=== PATIENT | male | born 1985 | race American Indian/Alaskan Native ===

== ENCOUNTER 2017-02-26 01:46 | Emergency (ER) | payer OTHER ==
[2017-02-26 03:08] LABS: Anion Gap 15 mmol/L; BUN/Creatinine Ratio 11; Basophils % (Auto) 1.4 % (0.0-1.8); Blood Urea Nitrogen 11 mg/dL (9-20); Carbon Dioxide 27 mmol/L (22-30); Chloride 103.8 mmol/L (98-107); Eosinophils % (Auto) 1.3 % (0.0-4.3); Glucose 95 mg/dL (75-100); Hematocrit 42.8 % (35.5-45.6); Hemoglobin 14.4 gm/dl (11.8-15.2); Mean Corpuscular HGB Conc 34 % (32-34); Mean Corpuscular Hemoglobin 27 pg (28-32); Mean Corpuscular Volume 81 fl (84-94); Potassium 4.2 mmol/L (3.6-5.0); Red Blood Count 5.31 M/mm3 (3.65-5.03); Red Cell Distribution Width 14.1 % (13.2-15.2); Sodium 142 mmol/L (137-145)
[2017-02-26 03:13] LABS: Platelet Count 226 K/mm3 (140-440)
--- NOTE | 2017-02-26 07:31 | XRay Report ---
ROUTINE CHEST, TWO VIEWS: HISTORY: Short of breath. The trachea, heart, mediastinal contour, lung teixeira and bony thorax are unremarkable. IMPRESSION: Unremarkable chest x-ray.
[2017-02-26 08:45] VITALS: BP 127/79
== END 2017-02-26 10:30 | disposition left against medical advice (07) ==
LOC: ED 01:46
DX: R42 Dizziness and giddiness (principal); Z53.21 Procedure and treatment not carried out due to patient leaving prior to being seen by health care provider
CPT/HCPCS: 36415; 71020; 80048; 84484; 85025; 93005; 93010

== ENCOUNTER 2017-03-02 11:41 | Emergency (ER) | payer OTHER ==
[2017-03-02 11:56] VITALS: BP 147/78
--- NOTE | 2017-03-02 12:19 | Emergency Department Report ---
ED Dizziness HPI - General Chief Complaint: Dizziness Stated Complaint: DIZZINESS/VOMITING Time Seen by Provider: 03/02/17 12:10 Source: patient Mode of arrival: Ambulatory Limitations: No Limitations - History of Present Illness MD Complaint: dizziness -: Gradual, week(s) Timing: gradual onset Description: "room spinning" History of Same: Yes History of Trauma: No Severity: mild Improves With: remaining still Worsens With: movement Associated Symptoms: other (N/V LAST WEEK). denies: ataxia, chest pain, confusion, cough, diaphoresis, fever/chills, loss of appetite, malaise, rash, seizure, shortness of breath, syncope, weakness - Related Data Previous Rx's Medication Instructions Recorded Last Taken Type Ibuprofen [Motrin 600 MG tab] 600 mg PO Q8H PRN #30 tablet 04/26/15 Unknown Rx traMADol [Ultram 50 MG tab] 50 mg PO Q6HR PRN #15 tablet 04/26/15 Unknown Rx Amoxicillin [Amoxicillin TAB] 875 mg PO BID #14 tablet 03/10/16 Unknown Rx Fluticasone [Flonase] 1 spray NS QDAY #1 bottle 03/10/16 Unknown Rx methylPREDNISolone [Medrol] 4 mg PO QAM #1 dosepack 03/10/16 Unknown Rx Allergies Allergy/AdvReac Type Severity Reaction Status Date / Time No Known Allergies Allergy Verified 04/26/15 09:43 ED Review of Systems ROS: Stated complaint: DIZZINESS/VOMITING Other details as noted in HPI Comment: All other systems reviewed and negative Constitutional: no symptoms reported, see HPI. denies: chills, diaphoresis, fever, malaise Eyes: as per HPI. denies: eye pain ENT: as per HPI. denies: ear pain, throat pain, dental pain, hearing loss, epistaxis Respiratory: no symptoms reported. denies: see HPI, cough, orthopnea Cardiovascular: as per HPI. denies: chest pain, palpitations, dyspnea on exertion, orthopnea Endocrine: no symptoms reported, see HPI. denies: excessive sweating, flushing , intolerance to cold, intolerance to heat Gastrointestinal: as per HPI. denies: abdominal pain, nausea, vomiting Genitourinary: as per HPI. denies: urgency, dysuria Musculoskeletal: as per HPI. denies: back pain Skin: as per HPI. denies: rash, lesions Neurological: as per HPI. denies: headache, weakness Psychiatric: as per HPI, anxiety. denies: depression Hematological/Lymphatic: as per HPI. denies: easy bleeding ED Past Medical Hx - Past Medical History Additional medical history: seasonal allergies. DENIES HEART HX. NO DRUGS/ETOH /CIG. WORKS FOR [employer] - Surgical History Additional Surgical History: L knee - Social History Smoking Status: Never Smoker Substance Use Type: Alcohol - Medications Home Medications: Home Medications Medication Instructions Recorded Confirmed Last Taken Type Ibuprofen [Motrin 600 MG tab] 600 mg PO Q8H PRN #30 tablet 04/26/15 Unknown Rx traMADol [Ultram 50 MG tab] 50 mg PO Q6HR PRN #15 tablet 04/26/15 Unknown Rx Amoxicillin [Amoxicillin TAB] 875 mg PO BID #14 tablet 03/10/16 Unknown Rx Fluticasone [Flonase] 1 spray NS QDAY #1 bottle 03/10/16 Unknown Rx methylPREDNISolone [Medrol] 4 mg PO QAM #1 dosepack 03/10/16 Unknown Rx ED Physical Exam - General Limitations: No Limitations General appearance: alert, in no apparent distress, anxious (WORRY, WORK NOT REQUESTED) - Eye Eye exam: Present: PERRL, EOMI, nystagmus (W RAPID L HEAD MOVEMENT). Absent: scleral icterus, conjunctival injection, periorbital swelling, periorbital tenderness - ENT ENT exam: Present: normal exam, normal orophraynx, mucous membranes moist, other (POST NASAL DRIP; R EAR FLUID) - Neck Neck exam: Present: normal inspection. Absent: tenderness, meningismus - Respiratory Respiratory exam: Present: normal lung sounds bilaterally. Absent: respiratory distress, wheezes, rales, rhonchi, stridor - Cardiovascular Cardiovascular Exam: Present: regular rate, normal rhythm. Absent: bradycardia , tachycardia - GI/Abdominal GI/Abdominal exam: Present: soft, normal bowel sounds. Absent: distended, tenderness, guarding, rebound, rigid, diminished bowel sounds - Rectal Rectal exam: Present: deferred - Back Exam Back exam: Present: normal inspection, full ROM. Absent: tenderness, CVA tenderness (R), CVA tenderness (L), muscle spasm, paraspinal tenderness, vertebral tenderness - Neurological Exam Neurological exam: Present: alert, oriented X3, CN II-XII intact, normal gait, reflexes normal - Expanded Neurological Exam Expanded Neurological exam: Present: protecting the airway. Absent: innattentive, memory loss-remote event, memory loss-recent event, ataxia, receptive aphasia, expressive aphasia, total aphasia, tremor Patient oriented to: Present: person, place, time Speech: Present: fluid speech. Absent: receptive aphasia, expressive aphasia, total aphasia, anomia Cranial nerves: EOM's Intact: Normal, Gag Reflex: Normal, Tongue Deviation: Normal, Facial Sensation: Normal Cerebellar function: Finger to Nose: Normal, Heel to Wise: Normal, Romberg: Normal Upper motor neuron: Pronator Drift: Normal Motor strength exam: RUE: 5, LUE: 5, RLE: 5, LLE: 5 Best Eye Response ([place]): (4) open spontaneously Best Motor Response ([place]): (6) obeys commands Best Verbal Response ([place]): (5) oriented [place] Total: 15 - Psychiatric Psychiatric exam: Present: normal affect, normal mood, anxious - Skin Skin exam: Present: warm, dry, intact, normal color ED Course Vital Signs 03/02/17 11:48 Temperature 98.8 F Pulse Rate 81 Blood Pressure 147/78 O2 Sat by Pulse 98 Oximetry - Reevaluation(s) Reevaluation #1: 03/02/17 12:28 TO ER ON WAITED 9H THEN LEFT TROP NEG X 3. LABS WNL PT MISSED WORK EARLY IN WEEK W DIZZINESS HE CAME FOR WORK NOTE AT THAT TIME HE HAD VERTIGO AND N/V SINCE RESOLVED HX ALLERGY AND SINUS INFECTIONS NYSTAGMUS W RAPID L MOVEMENT OF HEAD PT REPORTS WHEN HE IS DRIVING AND TURNS HEAD FAST HE CAN REPLICATE NO CP NO SOB NO D/E/C NEURO INTACT WO FOCAL NEURO DEF DROVE HERE ON WAY TO WORK BORDERLINE HTN PER PCP DIET DISCUSSED NO ORTHOSTASIS OR TACHY DC HOME W DC POC AND FOLLOW UP ED Medical Decision Making - Medical Decision Making SEE NOTE SEE LABS FROM SATURDAY - Differential Diagnosis VERTIGO Critical care attestation.: If time is entered above; I have spent that time in minutes in the direct care of this critically ill patient, excluding procedure time. ED Disposition Clinical Impression: Vertigo Disposition: DC-01 TO HOME OR SELFCARE Is pt being admited?: No Does the pt Need Aspirin: No Condition: Stable Instructions: Dizziness (ED), Vertigo (ED) Additional Instructions: WORK ON DIET AND BP WILL TREND DOWN FOLLOW UP PCP HYDRATE WELL OTC ZYRTEC DAILY Referrals: PRIMARY CARE, [Primary Care Provider] - 3-5 Days RODRIGUEZ SARAH MD [Staff Physician] - 3-5 Days Forms: Work/School Release Form(ED) Time of Disposition: 12:24
== END 2017-03-02 12:32 | disposition home or self-care (01) ==
LOC: ED 11:41
DX: R42 Dizziness and giddiness (principal)
CPT/HCPCS: 82962; 99282